=== PATIENT | female | born 1985 | race Native Hawaiian/Other Pacific Islander ===

== ENCOUNTER 2020-05-06 09:02 | Emergency (ER) | payer OTHER ==
[~2020-05-06] VITALS: Ht 167.6 cm; Wt 99.8 kg
[2020-05-06 10:14] VITALS: BP 156/82; TEMP 99.2
== END 2020-05-06 10:16 | disposition home or self-care (01) ==
LOC: ED 09:02
DX: S93.692A Other sprain of left foot, initial encounter (principal); S93.492A Sprain of other ligament of left ankle, initial encounter; W18.39XA Other fall on same level, initial encounter; Y92.89 Other specified places as the place of occurrence of the external cause
CPT/HCPCS: 96372; 99283; J1885

== ENCOUNTER 2023-01-19 13:02 | Outpatient (CLI) | payer OTHER | END 2023-01-19 19:16 | disposition home or self-care (01) | LOC: CT 13:02 | PROVIDERS: ATTEND Physician Assistant | DX: R03.0 Elevated blood-pressure reading, without diagnosis of hypertension (principal); R42 Dizziness and giddiness ==